=== PATIENT | male | born 1940 | race Caucasian/White ===

== ENCOUNTER → 2017-05-13 | Outpatient (CLI) | payer MEDICARE ==
--- NOTE | 2017-05-13 17:17 | US ---
EXAMINATION TYPE: US carotid duplex BILAT DATE OF EXAM: 05/13/2017 COMPARISON: NONE CLINICAL HISTORY: I63.50 Cerebral Infarction, R55 Syncope and Collap. Pt states TIA 2 weeks ago with transient abnormal gait and dizziness EXAM MEASUREMENTS: RIGHT: Peak Systolic Velocity (PSV) cm/sec ----- Right CCA: 108.2 ----- Right ICA: 141.5 ----- Right ECA: 95.2 ICA/CCA ratio: 1.3 RIGHT: End Diastole cm/sec ----- Right CCA: 25.4 ----- Right ICA: 18.7 ----- Right ECA: 0.0 LEFT: Peak Systolic Velocity (PSV) cm/sec ----- Left CCA: 123.8 ----- Left ICA: 208.2 ----- Left ECA: 247.6 ICA/CCA ratio: 1.7 LEFT: End Diastole cm/sec ----- Left CCA: 22.0 ----- Left ICA: 64.1 ----- Left ECA: 18.1 VERTEBRALS (direction of flow): Right Vertebral: Antegrade Left Vertebral: Antegrade Heterogeneous plaque bilaterally with soft plaque on left with elevated velocities bilaterally IMPRESSION: There is antegrade flow in the vertebral arteries. The images and measurements suggest a pproximate 75% stenosis in both internal carotid arteries. Criteria for Assigning % of Stenosis / Diameter reduction (Estimation based on the indirect measurements of the internal carotid artery velocities (ICA PSV). 1. Normal (no stenosis)=ICA PSV < 125 cm/s: ratio < 2.0: ICA EDV<40 cm/s. 2. Less than 50% stenosis=ICA PSV < 125 cm/s: ratio < 2.0: ICA EDV<40 cm/s. 3. 50 to 69% stenosis=ICA PSV of 125 to 230 cm/s: ration 2.0 ? 4.0: ICA EDV 40-100 cm/s. 4. Greater than 70% stenosis to near occlusion= ICA PSV > 230 cm/s: ratio > 4.0: ICA EDV > 100 cm/s. 5. Near occlusion= ICA PSV velocities may be low or undetectable: variable ratio and ICA EDV. 6. Total occlusion=unable to detect flow.
== END | disposition home or self-care (01) ==
LOC: RADUSWWP 16:37
PROVIDERS: ATTEND Family Medicine
DX: R55 Syncope and collapse (principal); Z86.73 Personal history of transient ischemic attack (TIA), and cerebral infarction without residual deficits
CPT/HCPCS: 93880

== ENCOUNTER → 2017-07-14 | Outpatient (CLI) | payer MEDICARE ==
[2017-07-14 16:06] LABS: Blood Urea Nitrogen 26 mg/dL (9-20); Non-African American GFR(MDRD) >60 (>60 ml/min/1.73 sqM)
--- NOTE | 2017-07-14 17:00 | CT ---
EXAMINATION TYPE: CT angio neck DATE OF EXAM: 07/14/2017 HISTORY: Follow-up from TIA. COMPARISON: 05/13/[address] DLP: 386.00 mGycm. Automated Exposure Control for Dose Reduction was Utilized. TECHNIQUE: CTA scan of the neck is performed with IV Contrast, patient injected with 65 mL of Omnipa que 350, axial images are obtained, coronal and sagittal reformatted images are reviewed. Three-D rec onstructed images are created on an independent workstation and reviewed. FINDINGS: Carotid/Vascular Structures: Minimal nonhemodynamically significant calcific atheromatous are seen at the ostia of the great vessels. No hemodynamically significant stenosis is seen within either of the common carotid arteries. Right: Less than 25% stenosis is seen of the carotid bulbs and right internal carotid artery from bailey cific and noncalcific plaquing. Nonhemodynamically significant stenosis is also seen of the right cav ernous portion and supraclinoid portion of the internal carotid arteries due to calcific atheromatous plaquing Left: Minimal nonhemodynamically significant noncalcific atheromatous plaquing is seen of the carotid bulb on the left. Just distal to the carotid bulb involving the left internal carotid artery there i s a focal stenosis of 75-80% spanning 1.1 cm in length. Distal to this there is no no stenosis throug hout the remainder of the extracranial portion of the internal carotid artery with minimal nonhemodyn amically significant calcific and noncalcific plaquing of the cavernous portion and supraclinoid port ion of the left internal carotid artery. Other: Visualized paranasal sinuses and mastoid air cells remain well aerated. Orbits are symmetric. Left thyroid nodule measures approximately 9 mm and is hypoattenuated. Thyroid gland appears enlarged with substernal extension into the superior mediastinum. Multilevel degenerative disc disease is see n of the cervical spine resulting in variable degrees of neural foraminal stenosis. Lung apices demon strate no evidence of pneumothorax. IMPRESSION: 1. Approximate 75-80% stenosis of the left internal carotid artery just distal to the carotid bulb sp anning a length of 1.1 cm. 2. Less than 25% stenosis of the right carotid bulb and right internal carotid artery. 3. No hemodynamically significant stenosis of the visualized intracranial portions of the internal ca rotid arteries or of the common carotid arteries. 4. Left thyroid nodule measuring 9 mm. Further evaluation with thyroid ultrasound could be performed if clinically indicated.
== END | disposition home or self-care (01) ==
LOC: RADCTMAIN 15:26
PROVIDERS: ATTEND Internal Medicine Interventional Cardiology
DX: I65.23 Occlusion and stenosis of bilateral carotid arteries (principal); E04.1 Nontoxic single thyroid nodule
CPT/HCPCS: 82565; 84520; 70498; 36415; Q9967

== ENCOUNTER → 2018-07-31 | Outpatient (CLI) | payer MEDICARE ==
[2018-07-31 15:32] LABS: LDL Cholesterol,Calculated 75.2 mg/dL (0.0-131.0); VLDL Calculation 18.8 mg/dL (5.00-40.00)
== END | disposition home or self-care (01) ==
LOC: LABWHC1 07:50
PROVIDERS: ATTEND Nurse Practitioner Adult Health
DX: E78.2 Mixed hyperlipidemia (principal)
CPT/HCPCS: 36415; 80061; 84450; 84460